=== PATIENT | female | born 1970 | race Caucasian/White ===

== ENCOUNTER 2017-03-13 02:54 | Emergency (ER) | payer MEDICAID ==
[2017-03-13 06:45] VITALS: BP 153/103
== END 2017-03-13 06:40 | disposition home or self-care (01) ==
LOC: ED 02:54
DX: S50.312A Abrasion of left elbow, initial encounter (principal); I10 Essential (primary) hypertension; Z91.410 Personal history of adult physical and sexual abuse; W22.8XXA Striking against or struck by other objects, initial encounter; Y93.89 Activity, other specified; Y99.8 Other external cause status; Y92.89 Other specified places as the place of occurrence of the external cause

== ENCOUNTER 2017-04-18 10:26 | Emergency (ER) | payer MEDICAID ==
[~2017-04-18] VITALS: Ht 152.4 cm; Wt 84.8 kg
[2017-04-18 10:35] VITALS: Ht 152.4 cm; Wt 84.8 kg
[2017-04-18] MEDS ORDERED: ZESTRIL20 MG PO (10:44)
[2017-04-18] MEDS ORDERED: ASPIRIN ADULT L81 M3 PO (10:44)
[2017-04-18] MEDS ORDERED: TOPROL XL50 MG PO (10:44)
[2017-04-18] MEDS ORDERED: HYDROCHLOROTHIA25 MG PO (10:44)
[2017-04-18 11:07] LABS: PLATELET COUNT 325 x10^3mcL (130-400); RED CELL DISTRIBUTION WIDTH 12.8 % (11.5-14.5)
[2017-04-18 11:10] LABS: UA SPECIFIC GRAVITY 1.015 (1.005-1.035); microscopic required? YES; urine erythrocyte NEGATIVE (NEGATIVE)
[2017-04-18 11:21] LABS: CALCIUM 8.2 mg/dL (8.5-10.1); CARBON DIOXIDE 27.6 mmol/L (21-32); CHLORIDE SERUM 105 mmol/L (98-107); CREATININE SERUM 0.6 mg/dL (0.6-1.0); GFR1 > 60 mL/min; GLUCOSE SERUM 99 mg/dL (74-106); SODIUM SERUM 141 mmol/L (136-145)
[2017-04-18 11:25] LABS: ALBUMIN 3.6 g/dL (3.4-5.0); ALKALINE PHOSPHATASE 104 U/L (46-116); ALT/SGPT 30 U/L (14-59); AST/SGOT 21 U/L (15-37); BASOPHIL % 2.4 % (0-2); BILIRUBIN TOTAL 0.4 mg/dL (0.20-1.00); CHOLESTEROL 172 mg/dL (<200); HDL CHOLESTEROL 42 mg/dL (40-60); MAGNESIUM 2.1 mg/dL (1.8-2.4); TOTAL PROTEIN, SERUM 7.8 g/dL (6.4-8.2)
[2017-04-18 11:49] LABS: AMPHETAMINE QUAL UR NONE DETECTED (NEG <=1000)
[2017-04-18 13:09] VITALS: BP 111/74
== END 2017-04-18 13:09 | disposition home or self-care (01) ==
LOC: ED 10:26
PROVIDERS: Emergency Medicine
DX: I10 Essential (primary) hypertension (principal); E66.9 Obesity, unspecified
CPT/HCPCS: 82962; 83880; J1940; J3490; Q0092

== ENCOUNTER 2019-07-25 10:44 | Emergency (ER) | payer MEDICAID ==
[~2019-07-25] VITALS: Ht 157.5 cm; Wt 84.4 kg
[~2019-07-25 10:44] MED LIST: ASPIRIN ADULT L81 M3 PO; HYDROCHLOROTHIA25 MG PO; TOPROL XL50 MG PO; ZESTRIL20 MG PO
[2019-07-25 10:51] VITALS: Ht 157.5 cm; Wt 84.4 kg
[2019-07-25 11:52] VITALS: BP 119/62
== END 2019-07-25 11:52 | disposition home or self-care (01) ==
LOC: ED 10:44
DX: B02.9 Zoster without complications (principal)

== ENCOUNTER 2019-09-10 19:05 | Emergency (ER) | payer MEDICAID, SELFPAY ==
[~2019-09-10] VITALS: Ht 154.9 cm; Wt 83.0 kg
[2019-09-10 19:31] VITALS: Ht 154.9 cm; Wt 83.0 kg
[2019-09-10 23:15] VITALS: BP 109/78
== END 2019-09-10 23:15 | disposition home or self-care (01) ==
LOC: ED 19:05
DX: U07.1 COVID-19 (principal); R50.9 Fever, unspecified; I10 Essential (primary) hypertension
CPT/HCPCS: J1885; U0003-CS

== ENCOUNTER 2019-09-18 14:02 | Emergency (ER) | payer MEDICAID, SELFPAY ==
[~2019-09-18] VITALS: Ht 152.4 cm; Wt 68.0 kg
[2019-09-18 14:07] VITALS: Ht 152.4 cm; Wt 68.0 kg
[2019-09-18 15:51] LABS: BASOPHIL % 0.3 % (0-2); PLATELET COUNT 292 x10^3mcL (130-400); RED CELL DISTRIBUTION WIDTH 13.3 % (11.5-14.5)
[2019-09-18 16:00] LABS: CALCIUM 8.8 mg/dL (8.5-10.1); CARBON DIOXIDE 30.7 mmol/L (21-32); CHLORIDE SERUM 104 mmol/L (98-107); CREATININE SERUM 0.8 mg/dL (0.6-1.0); GFR1 > 60 mL/min; GLUCOSE SERUM 109 mg/dL (74-106); POTASSIUM SERUM 3.6 mmol/L (3.5-5.1); SODIUM SERUM 140 mmol/L (136-145)
[2019-09-18 16:04] LABS: ALKALINE PHOSPHATASE 88 U/L (46-116); ALT/SGPT 30 U/L (14-59); AST/SGOT 11 U/L (15-37); BILIRUBIN TOTAL 0.26 mg/dL (0.20-1.00); PHOSPHOROUS 3.2 mg/dL (2.5-4.9); TOTAL PROTEIN, SERUM 6.7 g/dL (6.4-8.2); URIC ACID 4.7 mg/dL (2.6-6.0)
[2019-09-18 16:06] LABS: CHOLESTEROL 214 mg/dL (<200); HDL CHOLESTEROL 30 mg/dL (40-60)
[2019-09-18 16:50] VITALS: BP 110/68
== END 2019-09-18 16:50 | disposition home or self-care (01) ==
LOC: ED 14:02
PROVIDERS: Emergency Medicine
DX: R07.89 Other chest pain (principal); R05 Cough; R50.9 Fever, unspecified; R11.0 Nausea; I10 Essential (primary) hypertension